=== PATIENT | male | born 1935 | race Caucasian/White ===

== ENCOUNTER 2018-06-12 22:47 | Emergency (ER) | payer MEDICARE ==
[~2018-06-12] VITALS: Ht 170.2 cm; Wt 81.6 kg
[~2018-06-12 22:47] MED LIST: ASPI-266 PO; CHOL100061 PO; DOCU-161 PO; FLAX100031 PO; IRBE300T9 PO; LOVA20TA2 PO; MELA1TAB16 PO; MULT-974 PO; OMEG1CAP51 PO; RANI150C11 PO; TEST5GEL7 TD; Ticagrelor PO
--- OUTSIDE RECORDS SUMMARY | 2018-06-12 22:56 | XMS REPORT | Continuity of Care Document ---
Author Author [facility] Address Unknown Phone Unavailable Allergies Active Description Code Type Severity Reaction Onset Reported/Identified Relationship to Patient Clinical Status Yes No Known Drug Allergies [id number] Drug Allergy Unknown N/A 10/26/2014 Medications There is no data. Problems Date Dx Coded Attending Type Code Diagnosis Diagnosed By 10/17/2014 Ot 789.00 10/17/2014 Ot 789.01 10/17/2014 Ot 729.5 10/19/2014 ANGELIA GOMEZ MD Ot 272.4 10/19/2014 ANGELIA GOMEZ MD Ot 401.9 10/19/2014 ANGELIA GOMEZ MD Ot 785.1 10/19/2014 ANGELIA GOMEZ MD Ot 785.2 10/27/2014 ANGELIA GOMEZ MD Ot 272.4 10/27/2014 ANGELIA GOMEZ MD Ot 401.9 10/27/2014 ANGELIA GOMEZ MD Ot 414.01 10/27/2014 ANGELIA GOMEZ MD Ot 443.9 10/27/2014 ANGELIA GOMEZ MD Ot 496 10/27/2014 ANGELIA GOMEZ MD Ot 785.1 10/27/2014 ANGELIA GOMEZ MD Ot 785.2 10/27/2014 ANGELIA GOMEZ MD Ot V15.82 10/27/2014 ANGELIA GOMEZ MD Ot V58.69 11/21/2014 ANGELIA GOMEZ MD Ot 272.4 11/21/2014 ANGELIA GOMEZ MD Ot 401.9 11/21/2014 ANGELIA GOMEZ MD Ot 785.1 11/21/2014 ANGELIA GOMEZ MD Ot 785.2 11/23/2014 ANGELIA GOMEZ MD Ot 272.4 11/23/2014 ANGELIA GOMEZ MD Ot 401.9 11/23/2014 ANGELIA GOMEZ MD Ot 785.1 11/23/2014 ANGELIA GOMEZ MD Ot 785.2 01/15/2015 ANGELIA GOMEZ MD Ot 272.4 01/15/2015 ANGELIA GOMEZ MD Ot 401.9 01/15/2015 ANGELIA GOMEZ MD Ot 785.1 01/15/2015 ANGELIA GOMEZ MD Ot 785.2 Procedures There is no data. Results There is no data. Encounters ACCT No. Visit Date/Time Discharge Status Pt. Type Provider Facility Loc./Unit Complaint [id number] 07/14/2014 16:59:04 07/14/2014 23:59:59 CLS Outpatient Elieser [id number] 10/26/2014 09:07:05 ACT Document Registration [id number] 10/26/2014 09:05:00 10/27/2014 14:20:00 DIS Outpatient ANGELIA GOMEZ MD [facility] [id number] 10/18/2014 11:15:00 10/18/2014 23:59:59 CLS Outpatient ANGELIA GOMEZ MD [facility] CARD [id number] 10/17/2014 14:20:00 10/17/2014 23:59:59 CLS Outpatient ANGELIA GOMEZ MD [facility] CARD [id number] 01/16/2015 00:12:00 Document Registration [id number] 02/11/2011 11:13:00 Document Registration [id number] 09/21/2009 09:47:00 Document Registration [id number] 09/08/2009 08:57:00 Document Registration
[2018-06-12] MEDS ORDERED: KETOROLAC 60 MG/2 ML VIAL IM STA (23:22)
[2018-06-12] MEDS ORDERED: ORPHENADRINE 60 MG/2 ML (NORFLEX) AMP IM STA (23:22)
[2018-06-12] MEDS ORDERED: RX-TRAMADOL 50 MG (ULTRAM) TAB PPK#4 PO STA (23:22)
--- NOTE | 2018-06-12 23:29 | ED Back Pain ---
General Chief Complaint: Back Problems Stated Complaint: LEFT HIP PAIN Nursing Triage Note: PT PRESENTS TO ER WITH COMPLAINT OF LOW BACK PAIN. PT STATES HE THINKS IT COULD BE HIS SCIATICA. PT STATES THAT HE HAS BEEN SITTING IN A VEHCILE FOR LONG PERIODS OF TIME. STATES WENT TO [facility] TODAY, DID NOT IMPROVE HIS SYMPTOMS. Nursing Sepsis Screen: No Definite Risk Source of Information: Patient Exam Limitations: No Limitations History of Present Illness Date Seen by Provider: Jun 12, 2018 Time Seen by Provider: 23:10 Initial Comments PT ARRIVES VIA POV C/O PAIN TO LEFT POSTERIOR HIP, RADIATING DOWN BACK OF LEFT LEG, DOWN TO LEFT HEEL SYMPTOMS BEGAN FRIDAY NIGHT PT IS HERE VISITING FROM [place]--HAS BEEN RIDING/DRIVING IN VEHICLE. IS FLYING BACK HOME ON Friday06/16/18 NO INJURY NO PARESTHESIAS OR MOTOR DEFICITS NO PROBLEMS WITH BOWEL/BLADDER FUNCTION PT HAS HAD THIS A FEW TIMES BEFORE, AND THIS IS THE SAME. NORMALLY HAS BEEN ABLE TO STRETCH LEG AND PAIN EVENTUALLY GOES AWAY WENT TO [facility] TODAY AND NO IMPROVEMENT, AND MAYBE A LITTLE WORSE NO RELIEF WITH 1 ALEVE THIS MORNING. PT IS NORMALLY VERY ACTIVE, WALKS EVERY DAY, GOLFS, ETC. PT HAS NOT BEEN ABLE TO SLEEP DUE TO PAIN--CANNOT GET COMFORTABLE PAIN IS WORSE WHEN HE STEPS DOWN WITH LEFT FOOT, CANNOT LAY DOWN/LAY ON BACK OR LEFT SIDE DUE TO PAIN PAIN IS WORSE WHEN HE RAISES LEFT LEG. PT STATES HE HAD A FULL COMPLETE PHYSICAL RECENTLY AND EVERYTHING WAS GOOD, PER PT Other Comments PT MOVED TO [place] IN 2014, USED TO LIVE HERE UNTIL THEN. USED TO SEE DR. PALOMO AND DR. GOMEZ Allergies and Home Medications Allergies Coded Allergies: No Known Drug Allergies (Unverified , 10/26/14) Home Medications Aspirin 81 Mg Tablet., 81 MG PO HS, (Reported) Cholecalciferol (Vitamin D3) 1,000 Unit Tablet, 1,000 UNIT PO DAILY, (Reported) Cyclobenzaprine HCl 5 Mg Tablet, 5-10 MG PO TID Prescribed by: KEEGAN MARSHALL on 06/12/18 5955 Docusate Sodium 100 Mg Capsule, 100 MG PO HS, (Reported) Flaxseed Oil 1,000 Mg Capsule, 1,000 MG PO DAILY, (Reported) Irbesartan 300 Mg Tablet, 75 MG PO BID, (Reported) TAKES 1/4 (300MG) TABLET Lovastatin 20 Mg Tablet, 20 MG PO HS, (Reported) Melatonin/Pyridoxine Hcl (B6) 1 Each Tablet, 5 MG PO HS, (Reported) Methylprednisolone 4 Mg Tab.ds.pk, 4 MG PO UD Prescribed by: KEEGAN MARSHALL on 06/12/182336 Multivitamin 1 Each Tablet, 1 TAB PO DAILY, (Reported) [place]-3 Fatty Acids/Fish Oil 1 Each Capsule, 1,000 MG PO KAUR,TU,TH,SA @ HS, ( Reported) Ranitidine Hcl 150 Mg Capsule, 150 MG PO DAILY, (Reported) Testosterone 5 Gm Gel.packet, 5 GM TD Q48H, (Reported) Tramadol HCl 50 Mg Tablet, 50 MG PO Q4H Prescribed by: KEEGAN MARSHALL on 06/12/182336 [Ticagrelor] 90 MG TABLET, 90 MG PO BID Prescribed by: VERENICE ARENAS on 10/27/14 1315 Patient Home Medication List Home Medication List Reviewed: Yes Constitutional: no symptoms reported Respiratory: no symptoms reported Cardiovascular: no symptoms reported Gastrointestinal: no symptoms reported Genitourinary: no symptoms reported Musculoskeletal: see HPI Skin: no symptoms reported Psychiatric/Neurological: No Symptoms Reported Past Hlgflik-Rcyyji-Lahefp Hx Patient Social History Alcohol Use: Denies Use Recreational Drug Use: No Smoking Status: Never a Smoker Recent Foreign Travel: No Contact w/Someone Who Travel: No Recent Infectious Disease Expo: No Recent Hopitalizations: No Immunizations Up To Date Tetanus Booster (TDap): Unknown PED Vaccines UTD: Yes Date of Pneumonia Vaccine: Sep 26, 2014 Date of Influenza Vaccine: Sep 26, 2014 Seasonal Allergies Seasonal Allergies: No Past Medical History Surgeries: Yes (CARDIAC CATH--STENT X 1) Cardiac, Coronary Stent Respiratory: No Cardiac: Yes (HEART CATH, STENT X1) Heart Murmur, High Cholesterol, Hypertension, Valvular Heart Disease Neurological: No Genitourinary: No Gastrointestinal: Yes Gastroesophageal Reflux Musculoskeletal: Yes (OCCASIONAL SCIATICA) Endocrine: No HEENT: No Cancer: No Psychosocial: No Integumentary: No Blood Disorders: No Physical Exam Vital Signs Vital Signs - First Documented 06/12/18 22:55 Pulse 62 Resp 20 B/P (MAP) 135/69 (91) Pulse Ox 95 O2 Delivery Room Air Capillary Refill : Less Than 3 Seconds Height, Weight, BMI Height: 5'7.00" Weight: 180lbs. 14.4oz. 81.053671bo; BMI Method:Stated General Appearance: No Apparent Distress, WD/WN Neck: Normal Inspection Cardiovascular: Regular Rate, Rhythm, No Edema, No JVD, Normal Peripheral Pulses, Systolic Murmur (3-4/6) Respiratory: Normal Breath Sounds, No Accessory Muscle Use, No Respiratory Distress Peripheral Pulses: 3+ Dorsalis Pedis (R), 3+ Left Dors-Pedis (L) Gastrointestinal: Non Tender, Soft Back: No CVA Tenderness, No Vertebral Tenderness Extremity: No Calf Tenderness, No Pedal Edema, Other (NO BONY TENDERNESS, BUT POINTS TO AREA OF PAIN LEFT POSTERIOR HIP AREA. + LEFT STRAIGHT LEG RAISING AT 45 DEGREES--REPRODUCES COMPLAINT. ) Neurologic/Psychiatric: Alert, Oriented x3, No Motor/Sensory Deficits, Normal Mood/Affect, flare stitcher II-XII Norm as Tested Skin: Normal Color, Warm/Dry; No Rash Progress/Results/Core Measures Results/Orders My Orders Orders - KEEGAN MARSHALL DO Ketorolac Injection (Toradol Injection) (06/12/18 23:22) Orphenadrine Injection (Norflex Injectio (06/12/18 23:22) Rx-Tramadol Hcl (Rx-Ultram) (06/12/18 23:22) Vital Signs/I&O 06/12/18 22:55 Pulse 62 Resp 20 B/P (MAP) 135/69 (91) Pulse Ox 95 O2 Delivery Room Air Blood Pressure Mean: 91 Progress Progress Note : Progress Note OFFERED XRAYS, CT SCAN AND PT DECLINES AT THIS TIME GIVEN NORFLEX + TORADOL Departure Impression Primary Impression: Left sided sciatica Disposition: 01 HOME, SELF-CARE Condition: Stable Departure-Patient Inst. Referrals: NO,LOCAL PHYSICIAN (PCP) Primary Care Physician Patient Instructions: Sciatica (DC), Sciatica Exercises Add. Discharge Instructions: ALTERNATE ICE AND HEAT TO SORE AREA AT 20 MINUTE INTERVALS FOLLOW UP IN 2 DAYS IF NO BETTER All discharge instructions reviewed with patient and/or family. Voiced understanding. Scripts Cyclobenzaprine HCl (Cyclobenzaprine HCl) 5 Mg Tablet 5-10 MG PO TID, #15 TAB Prov: KEEGAN MARSHALL DO 06/12/18 Methylprednisolone (Medrol) 4 Mg Tab.ds.pk 4 MG PO UD, #1 PKG Prov: KEEGAN MARSHALL DO 06/12/18 Tramadol HCl (Ultram) 50 Mg Tablet 50 MG PO Q4H, #20 TAB Prov: KEEGAN MARSHALL DO 06/12/18 KEEGAN MARSHALL DO Jun 12, 2018 23:29
[2018-06-12] MEDS ORDERED: CYCL5TAB PO ×2 (23:36→23:37)
[2018-06-12] MEDS ORDERED: METH4TAB PO ×2 (23:36→23:37)
[2018-06-12] MEDS ORDERED: TRAM-42 PO ×2 (23:36→23:37)
[2018-06-12 23:54] VITALS: BP 135/69
== END 2018-06-12 23:54 | disposition home or self-care (01) ==
LOC: EDUNIT# 22:47 → ER 22:48
DX: M54.32 Sciatica, left side (principal); E78.00 Pure hypercholesterolemia, unspecified; I10 Essential (primary) hypertension; K21.9 Gastro-esophageal reflux disease without esophagitis; Z79.82 Long term (current) use of aspirin; Z95.5 Presence of coronary angioplasty implant and graft
CPT/HCPCS: 96372; 99284